=== PATIENT | female | born 1995 | race Asian ===

== ENCOUNTER 2019-11-28 23:24 | Emergency (ER) | payer OTHER, SELFPAY ==
[2019-11-28 23:37] VITALS: BP 128/86; PULSE 80; RESP 18; TEMP 37.3; O2SAT 99; BMI 24.7
[2019-11-29 00:02] LABS: MANUAL DIFF FLAG NO
[2019-11-29 00:03] LABS: Basophils Percent Auto 0.5 % (0-2); Eosinophils Absolute Auto 0.2 X10*3/uL (0.0-0.4); Hematocrit 39.6 % (37-47); Hemoglobin 12.2 g/dl (12.0-16.0); Imm Gran Abs Auto 0.01 X10*3/uL (0.00-0.03); Imm Gran Pct Auto 0.1 % (0.0-0.4); Lymphocytes Absolute Auto 2.6 X10*3/uL (1.2-4.9); Lymphocytes Percent Auto 35.1 % (20-40); Mean Corpuscular HGB Conc 30.8 g/dl (31.0-35.0); Mean Corpuscular Hemoglobin 25.3 pg (27.0-33.0); Mean Platelet Volume 9.5 fL (9.4-12.3); Monocytes Absolute Auto 0.7 X10*3/uL (0.1-1.2); Monocytes Percent Auto 9.7 % (2-11); Neutrophils Absolute Auto 3.8 X10*3/uL (2.0-8.3); Neutrophils Percent Auto 52.6 % (45-73); Platelet Count 216 X10*3/uL (160-400); Red Blood Count 4.83 X10*6/uL (4.20-5.50); Red Cell Distribution Width 12.6 % (11.0-16.0); White Blood Count 7.3 X10*3/uL (4.8-10.8)
[2019-11-29] MEDS: Morphine Sulfate 4 MG/ML CARTRIDGE IVPUSH (00:05)
[2019-11-29] MEDS: 0.9 % Sodium Chloride 1,000 ML 999 ML IVCONT (00:05)
[2019-11-29] MEDS: ondansetron HCL 4 MG/2 ML VIAL IVPUSH (00:07)
[2019-11-29] MEDS: oxyCODONE HCl Immed Release 5 MG TABLET PO (00:07)
[2019-11-29] MEDS: Ketorolac Tromethamine 30 MG/ML VIAL IV (00:07)
[2019-11-29 00:24] LABS: Anion Gap 11 (12-20); Blood Urea Nitrogen 17 mg/dL (9-16); Calcium 8.2 mg/dL (8.4-10.2); Carbon Dioxide 24 mmol/L (22-29); Chloride 104 mmol/L (96-108); Estimated Glomerular Filt Rate > 60; Glucose Random 90 mg/dL (60-115); Potassium 3.4 mmol/l (3.3-5.1); Sodium 136 mmol/L (135-145)
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
== END 2019-11-29 02:14 | disposition home or self-care (01) ==
PROVIDERS: Nurse Practitioner Family; Emergency Provider Internal Medicine
DX: T20.27XA Burn of second degree of neck, initial encounter (principal); T20.26XA Burn of second degree of forehead and cheek, initial encounter; T21.21XA Burn of second degree of chest wall, initial encounter; T31.0 Burns involving less than 10% of body surface; T59.811A Toxic effect of smoke, accidental (unintentional), initial encounter; S00.81XA Abrasion of other part of head, initial encounter; X10.2XXA Contact with fats and cooking oils, initial encounter; Y93.G3 Activity, cooking and baking; Y92.009 Unspecified place in unspecified non-institutional (private) residence as the place of occurrence of the external cause; Z23 Encounter for immunization
CPT/HCPCS: 36415; 80048; 85025; 90471; 90715; 96361; 96374; 96375; 99284; J1885; J2270; J2405